=== PATIENT | male | born 2000 | race Caucasian/White ===

== ENCOUNTER 2025-01-31 08:39 | Outpatient (CLI) | payer OTHER, SELFPAY | END 2025-01-31 08:40 | disposition home or self-care (01) | LOC: LKVREF 08:43 | PROVIDERS: PCP Family Medicine; Visit Provider Family Medicine | DX: R55 Syncope and collapse (principal); R53.83 Other fatigue; R73.9 Hyperglycemia, unspecified; Z13.6 Encounter for screening for cardiovascular disorders | CPT/HCPCS: 80061; 83735; 84443 ==

== ENCOUNTER 2025-02-09 07:16 | Outpatient (CLI) | payer OTHER, SELFPAY ==
--- NOTE | 2025-02-09 07:15 | CRLHL7_ITS ---
For Patients: As a result of the Century Cures Act, medical imaging exams and procedure reports are released immediately into your electronic medical record. You may view this report before your referring provider. If you have questions, please contact your health care provider. Indication: Syncope and collapse. Technique: Multiplanar multisequence noncontrast MR images of the brain. Comparison: None. Findings: The ventricles and sulci are within normal limits for patient age. No mass effect or midline shift. No parenchymal signal abnormalities. No intracranial hemorrhage or pathologic extra-axial fluid collection. No diffusion restriction to suggest acute infarction. Major arterial flow voids of the skull base are preserved. Globes are symmetric. Minimal ethmoid sinus mucosal thickening. Mastoid air cells are clear. Impression: Unremarkable noncontrast MRI of the brain. Dictated by Jair Weber MD @ 02/09/2025 8:49:23 AM (Electronically Signed)
== END 2025-02-09 07:17 | disposition home or self-care (01) ==
LOC: MRI 07:20
PROVIDERS: PCP Family Medicine; Visit Provider Family Medicine
DX: R55 Syncope and collapse (principal)
CPT/HCPCS: 70551